=== PATIENT | male | born 1940 | race Caucasian/White ===

== ENCOUNTER 2020-01-14 05:55 | Day surgery (SDC) | payer MEDICARE, OTHER ==
[2020-01-13 09:58] LABS: BASOPHILS # (AUTO) 0.1 X10'3 (0-0.2); BASOPHILS % (AUTO) 0.7 % (0-1); EOSINOPHILS # (AUTO) 0.1 X10'3 (0-0.9); EOSINOPHILS % (AUTO) 1.8 % (0-6); HEMOGLOBIN 13.7 g/dl (14.0-17.9); LYMPHOCYTES # (AUTO) 2.3 X10'3 (1.1-4.8); LYMPHOCYTES % (AUTO) 31.4 % (21-51); MEAN CORPUSCULAR HEMOGLOBIN 30.8 PG (27.0-31.0); MEAN CORPUSCULAR HGB CONC 33.3 g/dL (33.0-36.5); MEAN CORPUSCULAR VOLUME 92.4 FL (78-98); MEAN PLATELET VOLUME 9.2 FL (7.4-10.4); MONOCYTES # (AUTO) 0.6 X10'3 (0-0.9); MONOCYTES % (AUTO) 8.8 % (2-12); NEUTROPHILS # (AUTO) 4.2 X10'3 (1.8-7.7); NEUTROPHILS % (AUTO) 57.3 % (42-75); PLATELET COUNT 199 X10'3 (140-440); RED BLOOD COUNT 4.44 X10'6 (4.70-6.10); RED CELL DISTRIBUTION WIDTH 13.9 % (11.5-14.5); WHITE BLOOD COUNT 7.3 X10'3 (4.5-11.0)
[2020-01-13 10:07] LABS: ALBUMIN 3.7 G/DL (3.4-5.0); ANION GAP 1 (8-16); BLOOD UREA NITROGEN 15 MG/DL (7-18); BUN/CREATININE RATIO 11.9 (5.4-32.0); CALCIUM 8.1 MG/DL (8.5-10.1); CHLORIDE 108 MMOL/L (99-107); CREATININE 1.26 MG/DL (0.60-1.10); GLUCOSE 106 MG/DL (70-104); SODIUM 144 MMOL/L (135-145); eGFR 55 ML/MIN
[2020-01-13 10:08] LABS: PARTIAL THROMBOPLASTIN TIME 31 SECONDS (22-32)
[2020-01-14] VITALS (10 sets, daily range): BP systolic 134–160; BP diastolic 68–90
[~2020-01-14] VITALS: Ht 180.3 cm; Wt 75.1 kg
[2020-01-14] MEDS ORDERED: normal saline 1000ml 1,000 ML IV SCH ×2 (06:15→09:55)
[2020-01-14] MEDS ORDERED: Cefazolin 2GM/100ML NS IVPB 100 ML IV ONE (06:20)
[2020-01-14] MEDS ORDERED: POTA20TA19 PO (07:10)
[2020-01-14] MEDS ORDERED: ASPI81TA52 PO (07:10)
[2020-01-14] MEDS ORDERED: COU4T PO (07:11)
[2020-01-14] MEDS ORDERED: ISOS20TA6 PO (07:13)
[2020-01-14] MEDS ORDERED: FURO-150 PO (07:14)
[2020-01-14] MEDS ORDERED: CARV6.253 PO (07:15)
[2020-01-14] MEDS ORDERED: LISI-604 PO (07:16)
[2020-01-14] MEDS ORDERED: NITR0.4T51 SL (07:17)
[2020-01-14] MEDS ORDERED: ROSU40TA22 PO (07:18)
[2020-01-14] MEDS ORDERED: fentaNYL/PF 50MCG/1 ML 2ML syringe ONE (07:35)
[2020-01-14] MEDS ORDERED: midazolam 2 mg/2 ml injection ONE (07:35)
[2020-01-14] MEDS ORDERED: LIDOcaine 1% W/epiNEPHrine 1:100,000 20ml vial ONE (07:36)
[2020-01-14] MEDS ORDERED: ceFAZolin 1000mg inj ONE (08:08)
[2020-01-14] MEDS ORDERED: vancomycin/NS 1 GM ADD-VANTAGE 250 ML X 1 DOSE IV ONE (10:30)
== END 2020-01-14 14:00 | disposition home or self-care (01) ==
LOC: SSTAY O 05:55
PROVIDERS: ATTEND Internal Medicine Cardiovascular Disease
DX: Z45.010 Encounter for checking and testing of cardiac pacemaker pulse generator [battery] (principal); I11.0 Hypertensive heart disease with heart failure; I42.0 Dilated cardiomyopathy; I50.22 Chronic systolic (congestive) heart failure; I50.9 Heart failure, unspecified; I25.10 Atherosclerotic heart disease of native coronary artery without angina pectoris; F17.210 Nicotine dependence, cigarettes, uncomplicated; I25.2 Old myocardial infarction; E78.5 Hyperlipidemia, unspecified; Z98.890 Other specified postprocedural states; Z79.899 Other long term (current) drug therapy
CPT/HCPCS: 33228; 36415; 80048; 85025; 85610; 85730; 93005; 99152; 99153; C1785; J0690; J2250; J3010; J3370; A4620; A6449

== ENCOUNTER 2021-02-15 08:35 | Day surgery (SDC) | payer MEDICARE, OTHER ==
[~2021-02-15 08:35] MED LIST: ASPI81TA52 PO; CARV6.253 PO; COU4T PO; FURO-150 PO; ISOS20TA15 PO; LISI-790 PO; NITR0.4T51 SL; POTA20TA19 PO; ROSU40TA22 PO
[2021-02-15] MEDS ORDERED: SIMV-45 PO (09:22)
[2021-02-15] MEDS ORDERED: ALLO100T PO (09:22)
[2021-02-15] MEDS ORDERED: SACU1TAB7 (09:22)
[2021-02-15 09:36] LABS: HEMOGLOBIN 7.7 g/dl (14.0-17.9); RED CELL DISTRIBUTION WIDTH 14.9 % (11.5-14.5); WHITE BLOOD COUNT 8.7 X10'3 (4.5-11.0)
[2021-02-15 09:37] LABS: BASOPHILS % (AUTO) 0.5 % (0-1); EOSINOPHILS % (AUTO) 0.3 % (0-6); HEMATOCRIT 23.4 % (42.0-52.0); LYMPHOCYTES # (AUTO) 1.3 X10'3 (1.1-4.8); LYMPHOCYTES % (AUTO) 14.8 % (21-51); MEAN CORPUSCULAR HEMOGLOBIN 31.3 PG (27.0-31.0); MEAN PLATELET VOLUME 8.7 FL (7.4-10.4); MONOCYTES # (AUTO) 0.6 X10'3 (0-0.9); MONOCYTES % (AUTO) 7.3 % (2-12); NEUTROPHILS # (AUTO) 6.7 X10'3 (1.8-7.7); NEUTROPHILS % (AUTO) 77.1 % (42-75); PLATELET COUNT 286 X10'3 (140-440); RED BLOOD COUNT 2.46 X10'6 (4.70-6.10)
[2021-02-15 09:43] LABS: ALBUMIN 2.7 G/DL (3.4-5.0); ANION GAP 8 (8-16); BLOOD UREA NITROGEN 15 MG/DL (7-18); BUN/CREATININE RATIO 16.9 (5.4-32.0); CALCIUM 8.3 MG/DL (8.5-10.1); CHLORIDE 105 MMOL/L (99-107); CREATININE 0.89 MG/DL (0.60-1.10); GLUCOSE 114 MG/DL (70-104); POTASSIUM 3.4 MMOL/L (3.5-5.1); SODIUM 143 MMOL/L (135-145); TOTAL CARBON DIOXIDE 29.7 MMOL/L (24-32); eGFR 83 ML/MIN
--- NOTE | 2021-02-15 09:55 | NUR ---
Patient had INR of 2.5, Dr. stone came in and talked to patient and ended up rescheduling the patient for another time as INR was too high. Patient IV dc'ed canula tip intact. Left in stable condition with home oxygen tank, left in wheel chair with .
[2021-02-15 10:45] VITALS: BP 130/53
== END 2021-02-15 09:55 | disposition home or self-care (01) ==
LOC: SSTAY O 08:35
PROVIDERS: ATTEND Radiology Diagnostic Radiology
DX: R91.8 Other nonspecific abnormal finding of lung field (principal); Z53.8 Procedure and treatment not carried out for other reasons; I25.10 Atherosclerotic heart disease of native coronary artery without angina pectoris; E78.00 Pure hypercholesterolemia, unspecified; I25.2 Old myocardial infarction; Z79.01 Long term (current) use of anticoagulants; Z95.1 Presence of aortocoronary bypass graft; Z95.0 Presence of cardiac pacemaker; Z79.899 Other long term (current) drug therapy; Z98.49 Cataract extraction status, unspecified eye; Z98.890 Other specified postprocedural states
CPT/HCPCS: 36415; 80048; 85025; 85610

== ENCOUNTER 2021-02-17 09:03 | Day surgery (SDC) | payer MEDICARE, OTHER ==
[~2021-02-17] VITALS: Ht 182.9 cm; Wt 67.1 kg
[~2021-02-17 09:03] MED LIST changes: +ALLO100T PO; -ASPI81TA52 PO; -COU4T PO; -POTA20TA19 PO; -ROSU40TA22 PO; +SACU1TAB7; +SIMV-45 PO
[2021-02-17 09:30] VITALS: BP 114/63
[2021-02-17] MEDS ORDERED: albumin 25% 100mL bottle x 1 IV PRN (09:35)
[2021-02-17 10:09] LABS: BASOPHILS # (AUTO) 0.1 X10'3 (0-0.2); BASOPHILS % (AUTO) 0.6 % (0-1); EOSINOPHILS % (AUTO) 0.3 % (0-6); HEMATOCRIT 24.1 % (42.0-52.0); HEMOGLOBIN 7.9 g/dl (14.0-17.9); LYMPHOCYTES # (AUTO) 1.4 X10'3 (1.1-4.8); LYMPHOCYTES % (AUTO) 16.7 % (21-51); MEAN CORPUSCULAR HEMOGLOBIN 31.7 PG (27.0-31.0); MEAN CORPUSCULAR VOLUME 95.9 FL (78-98); MEAN PLATELET VOLUME 8.6 FL (7.4-10.4); MONOCYTES # (AUTO) 0.8 X10'3 (0-0.9); MONOCYTES % (AUTO) 9.2 % (2-12); NEUTROPHILS # (AUTO) 6.2 X10'3 (1.8-7.7); NEUTROPHILS % (AUTO) 73.2 % (42-75); PLATELET COUNT 301 X10'3 (140-440); RED BLOOD COUNT 2.51 X10'6 (4.70-6.10); RED CELL DISTRIBUTION WIDTH 15.7 % (11.5-14.5); WHITE BLOOD COUNT 8.4 X10'3 (4.5-11.0)
[2021-02-17] MEDS ORDERED: WARF3TAB56 PO (10:17)
[2021-02-17] MEDS ORDERED: OCUVITE PO (10:17)
[2021-02-17] MEDS ORDERED: FERR-119 PO (10:17)
[2021-02-17] MEDS ORDERED: ERGO400C PO (10:17)
[2021-02-17] MEDS ORDERED: ASPI-611 PO (10:17)
[2021-02-17] MEDS ORDERED: LORA10CA PO (10:17)
[2021-02-17 10:19] LABS: ALBUMIN 2.9 G/DL (3.4-5.0); ANION GAP 9 (8-16); BLOOD UREA NITROGEN 15 MG/DL (7-18); BUN/CREATININE RATIO 15.5 (5.4-32.0); CALCIUM 8.8 MG/DL (8.5-10.1); CHLORIDE 101 MMOL/L (99-107); CREATININE 0.97 MG/DL (0.60-1.10); GLUCOSE 113 MG/DL (70-104); POTASSIUM 3.8 MMOL/L (3.5-5.1); SODIUM 142 MMOL/L (135-145); TOTAL CARBON DIOXIDE 31.9 MMOL/L (24-32); eGFR 75 ML/MIN
[2021-02-17] MEDS ORDERED: ondansetron/PF 4mg/2ml inj IV ONE (10:45)
== END 2021-02-17 11:15 | disposition home or self-care (01) ==
LOC: SSTAY O 09:03
PROVIDERS: ATTEND Radiology Diagnostic Radiology
DX: R91.8 Other nonspecific abnormal finding of lung field (principal); Z53.8 Procedure and treatment not carried out for other reasons; I25.10 Atherosclerotic heart disease of native coronary artery without angina pectoris; E78.00 Pure hypercholesterolemia, unspecified; I10 Essential (primary) hypertension; Z95.0 Presence of cardiac pacemaker; Z95.1 Presence of aortocoronary bypass graft; Z98.890 Other specified postprocedural states; Z79.899 Other long term (current) drug therapy; Z79.01 Long term (current) use of anticoagulants; Z87.891 Personal history of nicotine dependence; Z72.89 Other problems related to lifestyle
CPT/HCPCS: 36415; 80048; 85025; J2405